=== PATIENT | male | born 1965 | race Caucasian/White ===

== ENCOUNTER 2019-08-07 13:49 | Emergency (ER) | payer OTHER ==
[~2019-08-07] VITALS: Ht 182.9 cm; Wt 82.0 kg
[2019-08-07 13:55] VITALS: BP 140/84
[2019-08-07] MEDS ORDERED: LIDOCAINE-MPF 1%, 5ML ONE (14:05)
[2019-08-07] MEDS ORDERED: DIPH,PERTUSS(ACELL),TET VAC/PF 0.5 ML IM-VACC ONE ×2 (14:05→14:30)
[2019-08-07] MEDS ORDERED: LIDOCAINE-MPF 1%, 5ML INFIL ONE (14:30)
[2019-08-07] MEDS ORDERED: NEOSPORIN OINT. PKT 1 PACKET ONE ×2 (14:47→14:56)
== END 2019-08-07 15:13 ==
LOC: ED 15:09
DX: S61.412A Laceration without foreign body of left hand, initial encounter (principal); F17.200 Nicotine dependence, unspecified, uncomplicated; W26.8XXA Contact with other sharp object(s), not elsewhere classified, initial encounter; Y93.89 Activity, other specified; Y92.098 Other place in other non-institutional residence as the place of occurrence of the external cause; Y99.8 Other external cause status
CPT/HCPCS: 12001; 90471; 90715; 99283